=== PATIENT | female | born 1970 | race Caucasian/White ===

== ENCOUNTER 2016-06-12 20:58 | Inpatient (IN) | payer OTHER ==
[~2016-06-12] VITALS: Ht 170.2 cm; Wt 74.2 kg
[~2016-06-12 20:58] MED LIST: ALBU1NEB10 INH; CALC500C73 PO; CELE100C PO; ESCI1TAB9 PO; IPRASOL34 INH; MULT1CHW4 PO; VNTHFA/IN INH
[2016-06-12 21:00] VITALS: Ht 170.2 cm; Wt 74.2 kg
[2016-06-12] MEDS ORDERED: SODIUM CHLORIDE 0.9% 1000ML 2,000 ML IV STA (21:11)
[2016-06-12] MEDS ORDERED: KETOROLAC TROMETHAMINE 30 MG/ML VIAL IV STA (21:11)
[2016-06-12] MEDS ORDERED: ONDANSETRON 8 MG/54 ML D5W IV STA (21:11)
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
[2016-06-12 21:36] LABS: BASO % 0.1 %; BASO ABS # 0.01 K/uL (0-0.2); COMPLETE YES; HEMATOCRIT 39.6 % (37-47); IG% 0.2 %; LYMPH % 4.8 %; MEAN CELL VOLUME 89.8 fL (80-100); MEAN CORPUSCULAR HEMOGLOBIN 31.1 pg (25-34); MEAN CORPUSCULAR HGB CONC 34.6 g/dl (32-36); MEAN PLATELET VOLUME 9.6 fL (7.4-10.4); MONO % 5.6 %; NEUT % 89.3 %; PLATELET COUNT 306 K/uL (130-400); RED BLOOD COUNT 4.41 M/uL (4.2-5.4); WHITE BLOOD COUNT 16.64 K/uL (4.8-10.8)
[2016-06-12 21:53] LABS: BUN/CREATININE RATIO 23.4 (10-20); CALCIUM 9.5 mg/dl (8.5-10.1); CREATININE 0.7 mg/dl (0.60-1.20); POTASSIUM 3.4 mmol/L (3.5-5.1)
[2016-06-12 21:56] LABS: ALB/GLOB RATIO 1.3 (0.9-2)
[2016-06-12] MEDS ORDERED: ASTN NAE (22:06)
[2016-06-12] MEDS ORDERED: PSEU30TA20 PO (22:06)
[2016-06-12] MEDS ORDERED: CETI10TA84 PO (22:06)
[2016-06-12] MEDS ORDERED: FLNIN/ NAE (22:06)
[2016-06-12] MEDS ORDERED: PRED10TA PO (22:06)
[2016-06-12] MEDS ORDERED: ZOLP10TA6 PO (22:06)
[2016-06-12] MEDS ORDERED: BXN500 PO (22:06)
[2016-06-12] MEDS ORDERED: MULT1CHW4 PO (22:07)
--- NOTE | 2016-06-12 22:15 | DIAGNOSTIC IMAGING REPORT ---
PA CHEST RADIOGRAPH AND UPRIGHT AND SUPINE AP RADIOGRAPHS OF THE ABDOMEN CLINICAL HISTORY: Abdominal pain, nausea, vomiting and diarrhea. COMPARISON STUDY: Chest radiograph July 26, 2013 and abdominal series July 12, 2009. FINDINGS: Lung volumes are normal. The lungs are clear. There is no pneumothorax or pleural effusion. Cardiac size is normal. Mediastinal contours are normal. No free air is present. Cholecystectomy clips are noted. The bowel gas pattern is normal. Numerous pelvic calcifications likely reflect phleboliths although make evaluation for ureteral calculi difficult. IMPRESSION: 1. No free air or evidence of bowel obstruction. 2. No acute cardiopulmonary findings. Electronically signed by: Lavon Scott M.D. 06/12/2016 10:14 PM Dictated Date/Time: 06/12/2016 10:11 PM
[2016-06-12] MEDS ORDERED: PROMETHAZINE HCL INJ 12.5 MG in SODIUM CHLORIDE 0.9% 50ML 50 ML IV STA (22:40)
[2016-06-12] MEDS ORDERED: MoRPHine SULFATE 4 MG/ML 1 ML CARP\\VIAL IV PRN (23:30)
[2016-06-13] MEDS ORDERED: DiphenhydrAMINE HCL 50 MG/ML VIAL IV STA (00:11)
[2016-06-13] MEDS ORDERED: HYDROmorphone INJ 2 MG/ML SYR/VIAL IV STA (00:11)
[2016-06-13] MEDS ORDERED: METOCLOPRAMIDE HCL INJ 5 MG/ML 2 ML VIAL IV STA (00:11)
[2016-06-13] MEDS ORDERED: HYDROmorphone INJ 0.5 MG/0.5 ML SYR ONE (00:14)
[2016-06-13] MEDS ORDERED: POTASSIUM CHLR 10 MEQ / WTR 10 MEQ IV STA (00:41)
[2016-06-13] MEDS ORDERED: ALBUT/IPRATROP 3MG/0.5MG NEB 3 ML VIAL INH PRN (00:45)
[2016-06-13] MEDS ORDERED: FLUTICASONE PROPIONATE NA SPR 16 GM BTL NAE PRN (00:45)
[2016-06-13] MEDS ORDERED: MAGNESIUM HYDROXIDE SUSP 30 ML UDC PO PRN (00:45)
[2016-06-13] MEDS ORDERED: AZELASTINE HCL 30 ML INH NAE PRN (00:45)
[2016-06-13] MEDS ORDERED: ZOLPIDEM TARTRATE 5 MG TAB PO PRN (00:45)
[2016-06-13] MEDS ORDERED: ALBUTEROL HFA 8 GM INHALER INH PRN (00:45)
[2016-06-13] MEDS ORDERED: ACETAMINOPHEN 325 MG TAB PO PRN (00:45)
[2016-06-13] MEDS ORDERED: POLYETHYLENE (MIRALAX) 17 GM PACK PO PRN (00:45)
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
[2016-06-13 01:57] VITALS: BP 96/57; PULSE 63; TEMP 36.9; BMI 25.6
[2016-06-13] MEDS: KETOROLAC TROMETHAMINE 30 MG/ML VIAL IV PRN ×2 (03:58→13:36)
[2016-06-13] MEDS: ONDANSETRON INJ 2 MG/ML 2 ML VIAL IV PRN ×2 (03:58→12:35)
[2016-06-13] MEDS: SODIUM CHLORIDE 0.9% 1000ML 1,000 ML IV SCH ×3 (03:59→16:00)
--- NOTE | 2016-06-13 06:58 | DIAGNOSTIC IMAGING REPORT ---
CT OF THE ABDOMEN AND PELVIS WITHOUT CONTRAST CLINICAL HISTORY: Abdominal pain and vomiting. COMPARISON STUDY: CT of the abdomen and pelvis July 11, 2009 and abdominal series June 12, 2016. TECHNIQUE: Axial images of the abdomen and pelvis were obtained without IV contrast. Images were reviewed in the axial, sagittal, and coronal planes. FINDINGS: Lung bases are clear. There is a small hiatal hernia. Evaluation of the abdomen and pelvis is suboptimal on this unenhanced exam. There is no biliary ductal dilatation status post cholecystectomy. The liver, spleen, adrenal glands, kidneys and pancreas are normal. No pneumatosis, free air or portal venous gas is present. Portions of the small bowel are fluid filled and slightly dilated. A definite transition point is not identified. There are a few decompressed small bowel loops. There is no free fluid. No lymphadenopathy is present. The appendix is not visualized. Pelvic calcifications likely reflect phleboliths. Skeletal structures are unremarkable. IMPRESSION: Fluid-filled, slightly dilated small bowel without definite transition point identified. The findings could reflect gastroenteritis or a partial small bowel obstruction. Discussed with Dr. Hopper at time of dictation. Electronically signed by: Lavon Scott M.D. 06/13/2016 6:56 AM Dictated Date/Time: 06/13/2016 6:32 AM
[2016-06-13 07:26] VITALS: BP 89/54; PULSE 80; TEMP 37.2; O2SAT 96
[2016-06-13 07:49] LABS: HEMATOCRIT 33.3 % (37-47); MEAN CELL VOLUME 90.7 fL (80-100); MEAN CORPUSCULAR HEMOGLOBIN 30.8 pg (25-34); MEAN CORPUSCULAR HGB CONC 33.9 g/dl (32-36); MEAN PLATELET VOLUME 9.7 fL (7.4-10.4); PLATELET COUNT 257 K/uL (130-400); RED BLOOD COUNT 3.67 M/uL (4.2-5.4); WHITE BLOOD COUNT 8.82 K/uL (4.8-10.8)
[2016-06-13] MEDS: PROMETHAZINE HCL INJ 12.5 MG in SODIUM CHLORIDE 0.9% 50ML 50 ML IV PRN ×2 (08:15→17:18)
[2016-06-13 08:20] LABS: CALCIUM 8.2 mg/dl (8.5-10.1); CREATININE 0.52 mg/dl (0.60-1.20); MAGNESIUM 2.1 mg/dl (1.8-2.4); POTASSIUM 3.4 mmol/L (3.5-5.1)
[2016-06-13 08:36] VITALS: BP 96/56
[2016-06-13] MEDS: CETIRIZINE HCL 10 MG TAB PO SCH ×2 (09:36→21:00)
[2016-06-13] MEDS ORDERED: POTASSIUM CHLORIDE 20 MEQ TABCR PO ONE (15:15)
[2016-06-13] MEDS ORDERED: PANTOprazole SOD 40 MG TAB PO ONE (15:15)
[2016-06-13 16:00] VITALS: O2SAT 96
[2016-06-13 16:14] VITALS: BP 90/56; PULSE 60; TEMP 37.2; O2SAT 97
--- NOTE | 2016-06-13 19:53 | Progress Note ---
Internal Med Progress Note Date of Service: Jun 13, 2016. Provider Documentation: SUBJECTIVE: Patient is seen and examined at bedside. She complains of persistent nausea, 2- 3 epidoes of small loose BM and intermittent LUQ abd pain. Denies any fever, chills, chest pain, SOB. OBJECTIVE: Vital Signs-as noted below General Appearance: Moderately built and nourished. + mild distress secondary to nausea Head: normocephalic, atraumatic Eyes: normal inspection ENT: hearing grossly normal Neck: supple, No JVD Respiratory/Chest: lungs clear, normal breath sounds, no respiratory distress, no accessory muscle use Cardiovascular: regular rate, rhythm, no edema, no murmur Abdomen/GI: normal bowel sounds, soft, mild tenderness diffusely, no guarding/ rigidity Extremities/Musculoskelatal: normal capillary refill, no pedal edema Neurologic/Psych: no motor/sensory deficits, alert, normal mood/affect Skin: normal color Lab data as noted below. ASSESSMENT & PLAN: Patient is a 46 yr old female with PMH of asthma, seasonal allergic rhinitis presents with worsening abdominal pain, nausea, vomiting and non bloody loose watery diarrhea. Patient was treated by her PCP for an URI on 2016 with Biaxin and prednisone taper. She states URI symptoms resolved but started having GI symptoms. CT abd shows findings of gastroenteritis and possible partial SBO. Viral Gastroenteritis: R/O Small Bowel Obstruction Complains of Nausea, vomiting, abd pain CT Abd: Suggestive of gastroenteritis and possible partial SBO Continue IV fluids, Zofran PRN Stool: Negative for C.diff Stool cultures: pending Monitor for electrolyte imbalance Pain control, Avoid Narcotics Start Clear liquid diet Repeat KUB in AM Consider NG tube if no resolution Hypokalemia Secondary to GI loses Will replace and monitor Asthma/Allergies Stable continue home inhalers Duonebs PRN DVT Px SCDs FULL CODE Vital Signs: Date Time Temp Pulse Resp B/P Pulse Ox O2 Delivery O2 Flow Rate FiO2 06/13/16 16:14 37.2 60 18 90/56 97 Room Air 06/13/16 16:00 96 Room Air 06/13/16 08:36 96/56 06/13/16 08:15 Room Air 06/13/16 07:26 37.2 80 14 89/54 96 Room Air 06/13/16 04:14 Room Air 06/13/16 01:57 36.9 63 18 96/57 Room Air 06/13/16 00:58 62 20 97/54 98 Room Air 06/12/16 22:58 36.7 69 20 93/57 98 Room Air 06/12/16 21:00 36.6 79 18 126/83 98 Room Air Lab Results: Results Past 24 Hours Test 06/12/16 21:25 06/13/16 00:55 06/13/16 06:49 Range/Units White Blood Count 16.64 8.82 4.8-10.8 K/uL Red Blood Count 4.41 3.67 4.2-5.4 M/uL Hemoglobin 13.7 11.3 12.0-16.0 g/dL Hematocrit 39.6 33.3 37-47 % Mean Corpuscular Volume 89.8 90.7 80-100 fL Mean Corpuscular Hemoglobin 31.1 30.8 25-34 pg Mean Corpuscular Hemoglobin Concent 34.6 33.9 32-36 g/dl Platelet Count 306 257 130-400 K/uL Mean Platelet Volume 9.6 9.7 7.4-10.4 fL Neutrophils (%) (Auto) 89.3 % Lymphocytes (%) (Auto) 4.8 % Monocytes (%) (Auto) 5.6 % Eosinophils (%) (Auto) 0.0 % Basophils (%) (Auto) 0.1 % Neutrophils # (Auto) 14.87 1.4-6.5 K/uL Lymphocytes # (Auto) 0.80 1.2-3.4 K/uL Monocytes # (Auto) 0.93 0.11-0.59 K/uL Eosinophils # (Auto) 0.00 0-0.5 K/uL Basophils # (Auto) 0.01 0-0.2 K/uL RDW Standard Deviation 43.0 44.0 36.4-46.3 fL RDW Coefficient of Variation 13.0 13.3 11.5-14.5 % Immature Granulocyte % (Auto) 0.2 % Immature Granulocyte # (Auto) 0.03 0.00-0.02 K/uL Sodium Level 141 143 136-145 mmol/L Potassium Level 3.4 3.4 3.5-5.1 mmol/L Chloride Level 104 110 98-107 mmol/L Carbon Dioxide Level 24 24 21-32 mmol/L Anion Gap 13.0 9.0 3-11 mmol/L Blood Urea Nitrogen 16 15 7-18 mg/dl Creatinine 0.70 0.52 0.60-1.20 mg/dl Est Creatinine Clear Calc Drug Dose 103.4 139.2 ml/min Estimated GFR () 118.7 130.9 Estimated GFR (Non- 102.5 113.0 BUN/Creatinine Ratio 23.4 29.0 10-20 Random Glucose 119 85 70-99 mg/dl Calcium Level 9.5 8.2 8.5-10.1 mg/dl Total Bilirubin 0.6 0.2-1 mg/dl Aspartate Amino Transf (AST/SGOT) 18 15-37 U/L Alanine Aminotransferase (ALT/SGPT) 26 12-78 U/L Alkaline Phosphatase 57 45-117 U/L Total Protein 7.0 6.4-8.2 gm/dl Albumin 4.0 3.4-5.0 gm/dl Globulin 3.0 2.5-4.0 gm/dl Albumin/Globulin Ratio 1.3 0.9-2 Lipase 153 73-393 U/L Influenza Type A Antigen Neg for Influ A NEG Influenza Type B Antigen Neg for Influ B NEG Magnesium Level 2.1 1.8-2.4 mg/dl Microbiology Results 06/12/16 Shiga Toxin Test - Preliminary, Resulted 06/12/16 Stool Culture - Preliminary, Resulted NO SALMONELLA ISOLATED TO DATE,... 06/12/16 C.difficile Toxin B Gene (PCR) - Final, Complete No C. difficile toxin B gene detected
[2016-06-13 23:05] VITALS: BP 100/58; PULSE 67; TEMP 36.6; O2SAT 97
[2016-06-14] MEDS: SODIUM CHLORIDE 0.9% 1000ML 1,000 ML IV SCH ×3 (00:28→20:09)
[2016-06-14 05:39] LABS: HEMATOCRIT 31.6 % (37-47); MEAN CELL VOLUME 91.6 fL (80-100); MEAN CORPUSCULAR HEMOGLOBIN 30.7 pg (25-34); MEAN CORPUSCULAR HGB CONC 33.5 g/dl (32-36); MEAN PLATELET VOLUME 9.5 fL (7.4-10.4); PLATELET COUNT 222 K/uL (130-400); RED BLOOD COUNT 3.45 M/uL (4.2-5.4); WHITE BLOOD COUNT 6.76 K/uL (4.8-10.8)
[2016-06-14 06:05] LABS: BUN/CREATININE RATIO 17.5 (10-20); CALCIUM 8.3 mg/dl (8.5-10.1); CREATININE 0.53 mg/dl (0.60-1.20); MAGNESIUM 2.1 mg/dl (1.8-2.4); POTASSIUM 3.5 mmol/L (3.5-5.1)
[2016-06-14 06:20] LABS: BASO % 0.3 %; BASO ABS # 0.02 K/uL (0-0.2); COMPLETE YES; EOS % 3.1 %; IG% 0.3 %; LYMPH % 52.7 %; LYMPH ABS # 3.56 K/uL (1.2-3.4); MONO % 13.5 %; NEUT % 30.1 %
[2016-06-14 08:03] VITALS: BP 90/56; PULSE 62; TEMP 36.7; O2SAT 97
--- NOTE | 2016-06-14 08:05 | DIAGNOSTIC IMAGING REPORT ---
KUB CLINICAL HISTORY: Abdominal pain. COMPARISON STUDY: 06/12/2016 FINDINGS: There is no pathologic bowel dilatation. There are no transition zones indicate bowel obstruction. There are multiple nonspecific pelvic basin calcifications. There are surgical clips in the right upper quadrant consistent with a prior cholecystectomy. IMPRESSION: 1. No evidence of pathologic bowel dilatation 2. Multiple nonspecific pelvic basin calcifications. Electronically signed by: Thanh Tavera M.D. 06/14/2016 8:03 AM Dictated Date/Time: 06/14/2016 8:03 AM
[2016-06-14] MEDS: PANTOprazole SOD 40 MG TAB PO SCH (09:04)
[2016-06-14] MEDS: CETIRIZINE HCL 10 MG TAB PO SCH ×2 (09:04→21:29)
[2016-06-14] MEDS: ONDANSETRON INJ 2 MG/ML 2 ML VIAL IV PRN (10:16)
--- NOTE | 2016-06-14 11:46 | Progress Note ---
Internal Med Progress Note Date of Service: Jun 14, 2016. Provider Documentation: SUBJECTIVE: Patient is seen and examined at bedside. Reports nausea but no episodes of vomiting. Still not tolerating diet at her baseline. Diarrhea and abd pain is improving but states noticing minimal blood after BM. OBJECTIVE: Vital Signs-as noted below General Appearance: Moderately built and nourished. + mild distress secondary to nausea Head: normocephalic, atraumatic Eyes: normal inspection ENT: hearing grossly normal Neck: supple, No JVD Respiratory/Chest: lungs clear, normal breath sounds, no respiratory distress, no accessory muscle use Cardiovascular: regular rate, rhythm, no edema, no murmur Abdomen/GI: normal bowel sounds, soft, minimal tenderness LUQ, no guarding/ rigidity Extremities/Musculoskelatal: normal capillary refill, no pedal edema Neurologic/Psych: no motor/sensory deficits, alert, normal mood/affect Skin: normal color Lab data as noted below. ASSESSMENT & PLAN: Patient is a 46 yr old female with PMH of asthma, seasonal allergic rhinitis presents with worsening abdominal pain, nausea, vomiting and non bloody loose watery diarrhea. Patient was treated by her PCP for an URI on 2016 with Biaxin and prednisone taper. She states URI symptoms resolved but started having GI symptoms. CT abd shows findings of gastroenteritis and possible partial SBO. Viral Gastroenteritis: R/O Small Bowel Obstruction Complains of Nausea, vomiting, abd pain, diarrhea CT Abd: Suggestive of gastroenteritis and possible partial SBO Leukocytosis resolved Continue IV fluids, PPI, Zofran PRN Stool: Negative for C.diff Stool cultures: pending Monitor for electrolyte imbalance Pain control, Avoid Narcotics Advance diet as tolerated Repeat KUB: No signs of obstruction Check fecal occult Drop in Hb could be dilutional, Monitor H&H Consider GI eval if no resolution Hypokalemia Secondary to GI loses Monitor Asthma/Allergies Stable continue home inhalers Duonebs PRN DVT Px SCDs FULL CODE Vital Signs: Date Time Temp Pulse Resp B/P Pulse Ox O2 Delivery O2 Flow Rate FiO2 06/14/16 08:30 Room Air 06/14/16 08:03 36.7 62 16 90/56 97 Room Air 06/13/16 23:05 36.6 67 16 100/58 97 Room Air 06/13/16 22:47 Room Air 06/13/16 16:14 37.2 60 18 90/56 97 Room Air 06/13/16 16:00 96 Room Air Lab Results: Results Past 24 Hours Test 06/14/16 05:04 Range/Units White Blood Count 6.76 4.8-10.8 K/uL Red Blood Count 3.45 4.2-5.4 M/uL Hemoglobin 10.6 12.0-16.0 g/dL Hematocrit 31.6 37-47 % Mean Corpuscular Volume 91.6 80-100 fL Mean Corpuscular Hemoglobin 30.7 25-34 pg Mean Corpuscular Hemoglobin Concent 33.5 32-36 g/dl Platelet Count 222 130-400 K/uL Mean Platelet Volume 9.5 7.4-10.4 fL Neutrophils (%) (Auto) 30.1 % Lymphocytes (%) (Auto) 52.7 % Monocytes (%) (Auto) 13.5 % Eosinophils (%) (Auto) 3.1 % Basophils (%) (Auto) 0.3 % Neutrophils # (Auto) 2.04 1.4-6.5 K/uL Lymphocytes # (Auto) 3.56 1.2-3.4 K/uL Monocytes # (Auto) 0.91 0.11-0.59 K/uL Eosinophils # (Auto) 0.21 0-0.5 K/uL Basophils # (Auto) 0.02 0-0.2 K/uL RDW Standard Deviation 45.8 36.4-46.3 fL RDW Coefficient of Variation 13.7 11.5-14.5 % Immature Granulocyte % (Auto) 0.3 % Immature Granulocyte # (Auto) 0.02 0.00-0.02 K/uL Red Blood Cell Morphology Unremarkable Sodium Level 144 136-145 mmol/L Potassium Level 3.5 3.5-5.1 mmol/L Chloride Level 112 98-107 mmol/L Carbon Dioxide Level 25 21-32 mmol/L Anion Gap 7.0 3-11 mmol/L Blood Urea Nitrogen 9 7-18 mg/dl Creatinine 0.53 0.60-1.20 mg/dl Est Creatinine Clear Calc Drug Dose 136.6 ml/min Estimated GFR () 130.1 Estimated GFR (Non- 112.3 BUN/Creatinine Ratio 17.5 10-20 Random Glucose 83 70-99 mg/dl Calcium Level 8.3 8.5-10.1 mg/dl Magnesium Level 2.1 1.8-2.4 mg/dl
[2016-06-14 15:30] VITALS: BP 107/72; PULSE 63; TEMP 36.8; O2SAT 97
[2016-06-14 23:04] VITALS: BP 105/67; PULSE 52; TEMP 36.7; O2SAT 98
[2016-06-15] MEDS ORDERED: LOPERAMIDE HCL 2 MG CAP PO PRN (07:30)
[2016-06-15 07:37] LABS: BASO % 0.2 %; BASO ABS # 0.02 K/uL (0-0.2); COMPLETE YES; EOS % 2.6 %; HEMATOCRIT 33.1 % (37-47); IG% 0.2 %; LYMPH % 37.8 %; LYMPH ABS # 3.09 K/uL (1.2-3.4); MEAN CELL VOLUME 91.4 fL (80-100); MEAN CORPUSCULAR HEMOGLOBIN 30.7 pg (25-34); MEAN CORPUSCULAR HGB CONC 33.5 g/dl (32-36); MEAN PLATELET VOLUME 9.8 fL (7.4-10.4); MONO % 9.1 %; NEUT % 50.1 %; PLATELET COUNT 235 K/uL (130-400); RED BLOOD COUNT 3.62 M/uL (4.2-5.4); WHITE BLOOD COUNT 8.17 K/uL (4.8-10.8)
[2016-06-15 08:01] VITALS: BP 114/72; PULSE 55; TEMP 36.8; O2SAT 97
[2016-06-15 08:01] LABS: BUN/CREATININE RATIO 4.7 (10-20); CALCIUM 8.9 mg/dl (8.5-10.1); CREATININE 0.59 mg/dl (0.60-1.20); POTASSIUM 3.1 mmol/L (3.5-5.1)
[2016-06-15] MEDS ORDERED: POTASSIUM CHLORIDE 20 MEQ TABCR PO ONE (09:00)
[2016-06-15] MEDS: CETIRIZINE HCL 10 MG TAB PO SCH (09:25)
[2016-06-15] MEDS: PANTOprazole SOD 40 MG TAB PO SCH (09:25)
[2016-06-15] MEDS: SODIUM CHLORIDE 0.9% 1000ML 1,000 ML IV SCH (09:27)
--- NOTE | 2016-06-15 12:11 | Discharge Instructions ---
Discharge Instructions Admission Reason for Admission: Lower Abd Pain,Sbo Discharge Discharge Diagnosis / Problem: Gastroenteritis Discharge Goals Goal(s): Decrease discomfort Activity Recommendations Activity Limitations: resume your previous activity . Instructions / Follow-Up Instructions / Follow-Up Please follow up with Family Medicine Dr. Jacinto on June 22 at 10:50am. Current Hospital Diet Patient's current hospital diet: Pediatric BRAT Diet Discharge Diet Recommended Diet: Pediatric BRAT Diet Pending Studies Studies pending at discharge: no Work Instructions Return To Work: after follow-up (Follow up scheduled for June 22.) Medical Emergencies . Who to Call and When: Medical Emergencies: If at any time you feel your situation is an emergency, please call 911 immediately. . Non-Emergent Contact Non-Emergency issues call your: Primary Care Provider . . "Provider Documentation" section prepared by Rachel Nevarez. VTE Core Measure Inpt VTE Proph given/why not?: SCD's
[2016-06-15] MEDS ORDERED: ONDA4TAB10 SL (12:14)
[2016-06-15] MEDS ORDERED: BNT10 PO (12:14)
[2016-06-15] MEDS ORDERED: MCRK/10 PO (12:14)
[2016-06-15 12:43] VITALS: BP 114/72; PULSE 55; TEMP 36.8; O2SAT 97
[2016-06-15] MEDS ORDERED: DICYCLOMINE HCL 10 MG CAP PO PRN (13:00)
--- NOTE | 2016-06-15 19:32 | Discharge Summary ---
Discharge Summary Admission Date: Jun 13, 2016 at 00:38 Discharge Date: Jun 15, 2016 Discharge Disposition: Home Principal Diagnosis: Gastroenteritis Procedures: CT a/p Fluid-filled, slightly dilated small bowel without definite transition point identified. The findings could reflect gastroenteritis or a partial small bowel obstruction. Medication Reconciliation New Medications: Ondasetron Odt (Zofran Odt) 4 Mg Tab 4 MG SL Q6H for Nausea, #6 TAB Potassium Chloride (K-Tabs) 10 Meq Tabcr 1 TAB PO DAILY for 7 Days, #7 TABS Dicyclomine HCl (Dicyclomine HCl) 10 Mg Cap 10 MG PO QID PRN for GI Upset for 10 Days, #40 CAP Continued Medications: Albuterol Hfa (Ventolin Hfa) 200 Puffs/37667 Mcg Aers 2 PUFFS INH UD PRN for SOB/Wheezing Albuterol Soln (Ventolin Soln) 0.083 % Neb 1 AMP INH UD PRN for SOB/Wheezing, #1 BOX Azelastine Hcl (Astelin Nasal Valencia) 200 Sprays/30 Ml Valencia 1 SPRAY JACQUELYN BID PRN for Nasal Congestion, #30 Calcium Carbonate (Calcium) 500 Mg Chw 1000 MG PO Q2D Cetirizine (Zyrtec) 10 Mg Tab 10 MG PO BID, TAB Fluticasone Propionate (Fluticasone Propionate) 120 Sprays/6000 Mcg Inha 1-2 SPRAYS JACQUELYN DAILY PRN for Nasal Congestion, #16 Ipratropium-Albuterol (Duoneb) Shadia 1 TREATMENT INH UD PRN for SOB/Wheezing, INHA Multiple Vitamins W/ Minerals (Adult Gummy) 1 Chw Chw 1 TAB PO DAILY Pseudoephedrine (Sudafed) 30 Mg Tab 30 MG PO PRN UD for CONGESTION, TAB Zolpidem Tartrate (Zolpidem Tartrate) 10 Mg Tab 5 MG PO HS PRN for Sleep, #15 Discontinued Medications: Clarithromycin (Clarithromycin) 500 Mg Tab 500 MG PO BID, #28 Prednisone (Prednisone) 10 Mg Tab 10 MG PO TAPER UD, #30 Admission Information HPI (per Admitting provider): This is a 46 year old female with PMH of asthma, seasonal allergic rhinitis presents with worsening abdominal pain, nausea/vomiting/diarrhea - states that on 06/07/16 - she visited her primary care due to an upper respiratory infection as well as nausea/vomiting at that time. She was given Biaxin and prednisone taper - states that her upper respiratory infection and breathing status improved, but her nausea/abdominal pain worsened. She also developed diarrhea during these days. She attributed this to her antibiotic use; but this kept on worsening until she could not tolerate any PO intake. She decided to come to the ER for further evaluation. Was given Zofran, fluids and pain medications, but her nausea persisted. She had an abdominal radiograph as well as CT; suggesting possible partial small bowel obstruction. Symptoms: + abdominal pain, diffuse, +nausea, +vomiting, +diarrhea. Physical Exam (per Admitting): General Appearance: + mild distress (+nausea, abdominal pain) Head: normocephalic, atraumatic Eyes: normal inspection ENT: hearing grossly normal Neck: supple Respiratory/Chest: lungs clear, normal breath sounds, no respiratory distress, no accessory muscle use Cardiovascular: regular rate, rhythm, no edema, no murmur Abdomen/GI: normal bowel sounds, soft, + tenderness, + pertinent finding ( nondistended, diffusely tender abdomen, soft, worse at the left side, normoactive BS) Extremities/Musculoskelatal: normal capillary refill, no pedal edema Neurologic/Psych: no motor/sensory deficits, alert, normal mood/affect Skin: normal color Hospital Course Patient is a 46 yr old female with PMH of asthma, seasonal allergic rhinitis who presented with worsening abdominal pain, nausea, vomiting and non bloody loose watery diarrhea. Patient was treated by her PCP for an URI on Jun 07 2016 with Biaxin and prednisone taper. She states URI symptoms resolved but started having GI symptoms. CT abd showed findings suggestive of gastroenteritis. Patient was managed medically with symptomatic relief. Nausea, vomiting and diarrhea resolved. Stool studies, including C diff and culture, were negative. Patient was given potassium supplementation for hypokalemia 2/2 diarrhea. Patient should have a repeat potassium level checked and can likely stop potassium supplementation at her follow up visit. Patient deemed stable for discharge with Family Medicine follow up. PE on discharge: General- awake; alert; NAD Eyes- EOMI; no scleral icterus Neck- no stridor; trachea midline Lungs- CTA bilaterally; no wheezes/crackles Heart- RRR; no m/r/g Abdomen- soft; NTND; nBS Back- no gross abnormalities Extremities- no c/c/e; no deformity Neuro- no gross focal deficits Skin- no appreciable rash or bruise . Total time spent on discharge = This includes examination of the patient, discharge planning, medication reconciliation, and communication with other providers. Discharge Instructions Discharge Instructions Admission Reason for Admission: Lower Abd Pain,Sbo Discharge Discharge Diagnosis / Problem: Gastroenteritis Discharge Goals Goal(s): Decrease discomfort Activity Recommendations Activity Limitations: resume your previous activity . Instructions / Follow-Up Instructions / Follow-Up Please follow up with Family Medicine Dr. Jacinto on June 22 at 10:50am. Current Hospital Diet Patient's current hospital diet: Pediatric BRAT Diet Discharge Diet Recommended Diet: Pediatric BRAT Diet Pending Studies Studies pending at discharge: no Work Instructions Return To Work: after follow-up (Follow up scheduled for June 22.) Medical Emergencies . Who to Call and When: Medical Emergencies: If at any time you feel your situation is an emergency, please call 911 immediately. . Non-Emergent Contact Non-Emergency issues call your: Primary Care Provider . . "Provider Documentation" section prepared by Rachel Nevarez. VTE Core Measure Inpt VTE Proph given/why not?: SCD's Additional Copies To Rosalio Jacinto M.D.
== END 2016-06-15 13:39 | disposition home or self-care (01) | DRG 392 ==
LOC: ENRESERVDT → ENRESERVTM → C.EDB 21:00 → C.MSW 06-13 00:38
PROVIDERS: ADMIT Family Medicine; ATTEND Internal Medicine
DX: A08.4 Viral intestinal infection, unspecified (principal); E87.6 Hypokalemia; J45.909 Unspecified asthma, uncomplicated; E78.00 Pure hypercholesterolemia, unspecified; K58.9 Irritable bowel syndrome, unspecified; G43.909 Migraine, unspecified, not intractable, without status migrainosus; Z83.3 Family history of diabetes mellitus; Z88.0 Allergy status to penicillin

== ENCOUNTER → 2016-07-27 | Outpatient (CLI) | payer OTHER ==
[~2016-07-27] MED LIST changes: +ASTN NAE; +BNT10 PO; -CELE100C PO; +CETI10TA84 PO; -ESCI1TAB9 PO; +FLNIN/ NAE; +MCRK/10 PO; +ONDA4TAB10 SL; +PSEU30TA20 PO; +ZOLP10TA6 PO
--- NOTE | 2016-07-27 13:35 | MAMMOGRAPHY REPORT ---
BILATERAL DIGITAL SCREENING MAMMOGRAM TOMOSYNTHESIS WITH CAD: 07/27/2016 CLINICAL HISTORY: Routine screening. Patient has no complaints. TECHNIQUE: Breast tomosynthesis in addition to standard 2D mammography was performed. Current study was also evaluated with a Computer Aided Detection (CAD) system. COMPARISON: Comparison is made to exams dated: 07/23/2015 mammogram, 07/15/2014 mammogram, 07/11/2013 m ammogram, 07/05/2012 mammogram, 05/26/2011 mammogram, and 05/14/2010 mammogram - [facility]. BREAST COMPOSITION: The tissue of both breasts is heterogeneously dense, which may obscure small ma sses. FINDINGS: The parenchymal pattern is similar to prior exams. No new suspicious mass, architectural distortion or cluster of suspicious microcalcifications is seen in either breast. IMPRESSION: ACR BI-RADS CATEGORY 2: BENIGN There is no mammographic evidence of malignancy. A 1 year screening mammogram is recommended. The p atient will receive written notification of the results. Approximately 10% of breast cancers are not detected with mammography. A negative mammographic repor t should not delay biopsy if a clinically suggestive mass is present. Shira Cardoza M.D. ay/:07/27/2016 08:19:48 Electrical Manufacturing Engineer: Lois DEVRIES(R)(Mateo), [facility] letter sent: Normal 1/2 BI-RADS Code: ACR BI-RADS Category 2: Benign
== END | disposition home or self-care (01) ==
LOC: C.MAMM 07:34
PROVIDERS: ATTEND Family Medicine
DX: Z12.31 Encounter for screening mammogram for malignant neoplasm of breast (principal)

== ENCOUNTER → 2016-08-11 | Outpatient (CLI) | payer OTHER | END | disposition home or self-care (01) | LOC: C.LAB1850 08:49 | PROVIDERS: ATTEND Family Medicine | DX: E83.52 Hypercalcemia (principal) ==

== ENCOUNTER → 2016-08-11 | Outpatient (CLI) | payer OTHER | END | disposition home or self-care (01) | LOC: C.MAMM 08:18 | PROVIDERS: ATTEND Family Medicine | DX: E83.52 Hypercalcemia (principal); S82.891S Other fracture of right lower leg, sequela; S82.851G Displaced trimalleolar fracture of right lower leg, subsequent encounter for closed fracture with delayed healing; X58.XXXS Exposure to other specified factors, sequela; X58.XXXD Exposure to other specified factors, subsequent encounter; Z87.81 Personal history of (healed) traumatic fracture ==

== ENCOUNTER → 2017-07-31 | Outpatient (CLI) | payer OTHER ==
[~2017-07-31] MED LIST changes: -ONDA4TAB10 SL
--- NOTE | 2017-08-01 07:56 | MAMMOGRAPHY REPORT ---
BILATERAL DIGITAL SCREENING MAMMOGRAM TOMOSYNTHESIS WITH CAD: 07/31/2017 CLINICAL HISTORY: Routine screening. Patient has no complaints. TECHNIQUE: Breast tomosynthesis in addition to standard 2D mammography was performed. Current study was also evaluated with a Computer Aided Detection (CAD) system. COMPARISON: Comparison is made to exams dated: 07/27/2016 mammogram, 07/23/2015 mammogram, 07/15/2014 m ammogram, 07/11/2013 mammogram, 07/05/2012 mammogram, and 05/26/2011 mammogram - [facility] enter. BREAST COMPOSITION: The tissue of both breasts is heterogeneously dense, which may obscure small mas ses. FINDINGS: There are a few faint punctate microcalcifications in the right breast. The glandular bambi elan is similar to prior mammograms although there is decreased subcutaneous fat suggesting interval w eight loss. No suspicious mass, architectural distortion or cluster of suspicious microcalcification s is seen. IMPRESSION: ACR BI-RADS CATEGORY 1: NEGATIVE There is no mammographic evidence of malignancy. A 1 year screening mammogram is recommended. The pa tient will receive written notification of the results. Approximately 10% of breast cancers are not detected with mammography. A negative mammographic report should not delay biopsy if a clinically suggestive mass is present. Shira Cardoza M.D. ay/:07/31/2017 15:57:22 [employer]: Sirena DEVRIES(R)(M), [facility] letter sent: Normal 1/2 BI-RADS Code: ACR BI-RADS Category 1: Negative
== END | disposition home or self-care (01) ==
LOC: C.MAMM 08:29
PROVIDERS: ATTEND Family Medicine
DX: Z12.31 Encounter for screening mammogram for malignant neoplasm of breast (principal)

== ENCOUNTER → 2017-08-01 | Outpatient (CLI) | payer OTHER | END | disposition home or self-care (01) | LOC: C.PATHSPEC 17:09 | PROVIDERS: ATTEND Ophthalmology | DX: D23.11 Other benign neoplasm of skin of right eyelid, including canthus (principal) ==

== ENCOUNTER 2018-11-27 23:25 | Observation (INO) ==
--- OUTSIDE RECORDS SUMMARY | 2018-11-27 23:28 | External Medical Summary | Continuity of Care Document ---
:1970 Author Name Chris Villegas, Provider Address Unavailable Unavailable , Care Team Providers Name Role Phone Unavailable Unavailable Unavailable Problems Active medical history not documented Allergies and Adverse Reactions Allergy history not documented Medications Medications not documented Procedures Procedures not documented Immunizations Immunizations not documented Plan of Treatment Planned Observations Planned Goals not documented Results No Known Results Results not documented
[2018-11-27] MEDS ORDERED: SODIUM CHLORIDE 0.9% 1000ML 1,000 ML IV ONE (23:50)
[2018-11-27] MEDS ORDERED: ONDANSETRON INJ 2 MG/ML 2 ML VIAL IV STA (23:52)
[2018-11-27] MEDS ORDERED: MoRPHine SULFATE 4 MG/ML 1 ML CARP\\VIAL IV STA (23:57)
[2018-11-28 00:36] LABS: Basophils # (auto) 0.02 K/uL (0-0.2); Basophils % (auto) 0.3 %; Eosinophils # (auto) 0.11 K/uL (0-0.5); Eosinophils % (auto) 1.4 %; Hematocrit (blood only) 38.5 % (37-47); Hemoglobin 12.9 g/dL (12.0-16.0); Immature Granulocytes # (auto) 0.01 K/uL (0.00-0.02); Immature Granulocytes % (auto) 0.1 %; Lymphocytes # (auto) 1.21 K/uL (1.2-3.4); Lymphocytes % (auto) 15.4 %; Mean Corpuscular Hgb Conc 33.5 g/dL (32-36); Mean Corpuscular Volume 86.5 fL (80-100); Mean Platelet Volume 9.7 fL (7.4-10.4); Monocytes # (auto) 0.81 K/uL (0.11-0.59); Monocytes % (auto) 10.3 %; Neutrophils # (auto) 5.68 K/uL (1.4-6.5); Neutrophils % (auto) 72.5 %; Platelet Count 290 K/uL (130-400); RDW Standard Deviation 54.4 fL (36.4-46.3); Red Blood Count 4.45 M/uL (4.2-5.4); White Blood Count 7.84 K/uL (4.8-10.8)
[2018-11-28 00:53] LABS: Alanine Aminotransferase 28 U/L (12-78); Albumin Level 3.8 gm/dl (3.4-5.0); Aspartate Aminotransferase 26 U/L (15-37); BUN Creatinine Ratio 21.5 (10-20); Blood Urea Nitrogen 15 mg/dl (7-18); Calcium 9.5 mg/dl (8.5-10.1); Carbon Dioxide 24 mmol/L (21-32); Chloride 107 mmol/L (98-107); Est GFR (African American) 118.2; Glucose 107 mg/dl (70-99); Potassium 3.2 mmol/L (3.5-5.1); Sodium 136 mmol/L (136-145)
[2018-11-28 00:58] LABS: Albumin Globulin Ratio 1.2 (0.9-2); Alkaline Phosphatase 76 U/L (45-117); Bilirubin,Total 0.4 mg/dl (0.2-1); Globulin 3.3 gm/dl (2.5-4.0); Total Protein 7.1 gm/dl (6.4-8.2); Troponin I < 0.015 ng/ml (0-0.045)
[2018-11-28 01:02] LABS: Pregnancy Test, Serum Negative (Negative)
[2018-11-28] MEDS ORDERED: ONDANSETRON INJ 2 MG/ML 2 ML VIAL IV STA (02:22)
[2018-11-28] MEDS ORDERED: FAMOTIDINE 20MG/5ML IV PUSH IV STA (02:27)
[2018-11-28] MEDS ORDERED: SODIUM CHLORIDE 0.9% 1000ML 1,000 ML IV SCH (02:30)
--- NOTE | 2018-11-28 02:37 | Emergency Department Note ---
Entered by Aaron Boykin acting as a scribe for Sudhakar Moon M.D. History of Present Illness General Chief complaint: Abdominal Pain Stated complaint: FLU LIKE SYMPTOMS, NAUSEA, VOMITING, DIARRHEA Source: patient History of Present Illness Provider complaint: Abd pain Onset (ago): day(s) 2 Location: abdomen Maximum Pain Intensity: 4 Current Pain Intensity: 4 Associated symptoms: + nausea/vomiting, + weakness and + other (diarrhea); no fever/chills The patient is a 48 year old female with a history of migraines, IBS, and asthma who presents to the Emergency Room with complaints of abdominal pain that began approximately 2 days ago. The patient did a lot of physical activity 2 days ago and then ate some pizza. Hours later she began to experience some diarrhea (no blood in stool) and intense abdominal cramping. She adds that she had 12 episodes of diarrhea today; she describes the consistency of her stools as "stra ight water with not even a particle". The patient also complains of nausea/vomiting. She also notes that she feels dehydrated and very weak. The patient's ate the same thing she did and is not experiencing any symptoms. The patient has a past surgical history of cholecystectomy, tubal ligation, hysterectomy, and appendectomy. The patient denies chest pain and fevers. The patient adds that she experienced similar symptoms 2 years ago. Home Medications Home Medications Medication Instructions Recorded Confirmed Type ALBUTEROL HFA (VENTOLIN HFA) 2 puff INHALATION UD PRN #0 07/26/13 History ALBUTEROL SOLN (Ventolin Soln) 1 amp INHALATION UD PRN #1 box 07/26/13 History IPRATROPIUM-ALBUTEROL (Duoneb) 1 treatment INHALATION UD PRN #0 07/26/13 History inh CALCIUM CARBONATE (CALCIUM) 1,000 mg PO Q2D #0 02/16/14 History AZELASTINE HCL (Astelin Nasal 1 spray JACQUELYN BID PRN #30 06/12/16 History [place]) Cetirizine (Zyrtec) 10 mg PO BID #0 tab 06/12/16 History Fluticasone Propionate 1 - 2 spry JACQUELYN DAILY PRN #16 06/12/16 History MULTIPLE VITAMINS W/ MINERALS 1 tab PO DAILY #0 06/12/16 History (ADULT GUMMY) Pseudoephedrine (Sudafed) 30 mg PO PRN UD #0 tab 06/12/16 History ZOLPIDEM TARTRATE 5 mg PO HS PRN #15 06/12/16 History Dicyclomine HCl 10 mg PO QID PRN 10 Days #40 cap 06/15/16 Rx Potassium Chloride (K-Tabs) 1 tab PO DAILY 7 Days #7 tabs 06/15/16 Rx Allergies Allergy/AdvReac Type Severity Reaction Status Date / Time Penicillins Allergy Mild Verified 03/25/11 17:26 doxycycline Allergy Unknown Rash Verified 02/16/14 16:21 Iodinated Contrast- Oral and Allergy Unknown . Verified 06/15/16 08:25 IV Dye iodine Allergy Unknown blisters Verified 02/16/14 16:21 latex Allergy Unknown RASH Verified 03/25/11 15:46 Past Med/Surg History Medical History Asthma IBS (irritable bowel syndrome) Migraines Social History Feels Safe at Home: Yes Smoking Status: Never smoker Review of Systems See HPI for pertinent positives & negatives. and A total of 10 systems reviewed and were otherwise negative Physical Exam Vital Signs Vital Signs - 24 hr 11/27/18 23:28 11/28/18 00:16 11/28/18 00:42 Temperature 36.8 C Temperature Source Oral Sepsis Recent Fever Within 48 Hours No Sepsis Action Taken by Nursing No Action Required Pulse Rate 107 H Pulse Rate [Right Finger] 71 Pulse Rhythm [Right Finger] Regular Pulse Strength [Right Finger] Normal Respiratory Rate 20 16 Respiratory Effort / Characteristics Non-Labored Spontaneous Non-Labored Respiratory Depth Normal Normal Respiratory Pattern Regular Blood Pressure 107/72 Blood Pressure [Right Arm] 113/69 Blood Pressure Mean 83 Blood Pressure Mean [Right Arm] 83 Blood Pressure Position Sitting Blood Pressure Position [Right Arm] Lying Pulse Oximetry 97 99 96 Oxygen Delivery Method Room Air Room Air 11/28/18 02:06 Temperature Temperature Source Sepsis Recent Fever Within 48 Hours Sepsis Action Taken by Nursing Pulse Rate Pulse Rate [Right Finger] 65 Pulse Rhythm [Right Finger] Regular Pulse Strength [Right Finger] Normal Respiratory Rate 16 Respiratory Effort / Characteristics Non-Labored Respiratory Depth Normal Respiratory Pattern Regular Blood Pressure Blood Pressure [Right Arm] 105/55 L Blood Pressure Mean Blood Pressure Mean [Right Arm] 71 Blood Pressure Position Blood Pressure Position [Right Arm] Lying Pulse Oximetry 96 Oxygen Delivery Method Room Air GENERAL: Awake, alert, in no distress, fatigued appearance HENT: Normocephalic, atraumatic. Dry lips EYES: Normal conjunctiva. Sclera non-icteric. NECK: Supple. No nuchal rigidity. RESPIRATORY: Clear to auscultation. No wheezes. Normal respiratory effort. CARDIAC: Normal rate. Normal rhythm. Extremities warm and well perfused. GI: Soft, non-distended. Mildly diffuse abdominal tenderness. No rebound or guarding. No masses. RECTAL: Deferred. MUSCULOSKELETAL: Atraumatic. Chest examination reveals no tenderness. There is no CVA tenderness to palpation. LOWER EXTREMITIES: Calves are equal size bilaterally and non-tender. No edema NEURO: Normal sensorium. No sensory or motor deficits noted. No facial droop. SKIN: Warm and dry. No rash or jaundice noted. Course 2351: The patient was evaluated in room C02B. A complete history and physical exam was performed. Administered Medications Discontinued Medications Famotidine (Pepcid 20mg Iv Push) 20 mg IV ONE STA Stop: 11/28/18 02:28 Last Admin: 11/28/18 02:54 Dose: 20 mg Documented by: [id number] Sodium Chloride (Nss 1000ml) 1,000 mls @ 999 mls/hr IV .Q1H1M ONE Stop: 11/28/18 00:50 Last Admin: 11/28/18 00:25 Dose: 999 mls/hr Documented by: [id number] Morphine Sulfate (Morphine Sulfate) 4 mg IV NOW STA Stop: 11/27/18 23:58 Last Admin: 11/28/18 00:25 Dose: 4 mg Documented by: [id number] Ondansetron HCl (Zofran) 4 mg IV NOW STA Stop: 11/27/18 23:53 Last Admin: 11/28/18 00:26 Dose: 4 mg Documented by: [id number] Ondansetron HCl (Zofran) 4 mg IV NOW STA Stop: 11/28/18 02:23 Last Admin: 11/28/18 02:35 Dose: 4 mg Documented by: [id number] Potassium Chloride (Klor-Con M20) 40 meq PO NOW STA Stop: 11/28/18 02:43 Last Admin: 11/28/18 02:54 Dose: 40 meq Documented by: [id number] Medical Decision Making Differential Diagnosis Differential diagnosis: Etiologies such as diverticulitis, PUD, biliary pathology, UTI, pancreatitis, obstruction, mesenteric ischemia, aortic pathology, infections, inflammatory bowel disease, renal colic, as well as others were entertained. Medical Records Attestation: I reviewed the patient's medical records. Home Medications Current Medication List: was personally reviewed by me Laboratory Data Attestation: I reviewed the patient's lab results. Result diagrams: 11/28/18 00:20 11/28/18 00:20 Lab Results 11/28/18 11/28/18 11/28/18 Range/Units 00:20 00:20 00:20 WBC 7.84 (4.8-10.8) K/uL RBC 4.45 (4.2-5.4) M/uL Hgb 12.9 (12.0-16.0) g/dL Hct 38.5 (37-47) % MCV 86.5 (80-100) fL MCH 29.0 (25-34) pg MCHC 33.5 (32-36) g/dL RDW Std Deviation 54.4 H (36.4-46.3) fL RDW Coeff of Akbar 17.0 H (11.5-14.5) % Plt Count 290 (130-400) K/uL MPV 9.7 (7.4-10.4) fL Immature Gran % (Auto) 0.1 % Neut % (Auto) 72.5 % Lymph % (Auto) 15.4 % [place] % (Auto) 10.3 % Eos % (Auto) 1.4 % Baso % (Auto) 0.3 % Immature Gran # (Auto) 0.01 (0.00-0.02) K/uL Neut # (Auto) 5.68 (1.4-6.5) K/uL Lymph # (Auto) 1.21 (1.2-3.4) K/uL [place] # (Auto) 0.81 H (0.11-0.59) K/uL Eos # (Auto) 0.11 (0-0.5) K/uL Baso # (Auto) 0.02 (0-0.2) K/uL Sodium 136 (136-145) mmol/L Potassium 3.2 L (3.5-5.1) mmol/L Chloride 107 (98-107) mmol/L Carbon Dioxide 24 (21-32) mmol/L Anion Gap 5.0 (3-11) BUN 15 (7-18) mg/dl Creatinine 0.68 (0.6-1.2) mg/dl Est Cr Clr Drug Dosing Not Reportable Est GFR ( Amer) 118.2 Est GFR (Non-Af Amer) 102.0 BUN/Creatinine Ratio 21.5 H (10-20) Glucose 107 H (70-99) mg/dl Calcium 9.5 (8.5-10.1) mg/dl Total Bilirubin 0.4 (0.2-1) mg/dl AST 26 (15-37) U/L ALT 28 (12-78) U/L Alkaline Phosphatase 76 (45-117) U/L Troponin I < 0.015 (0-0.045) ng/ml Total Protein 7.1 (6.4-8.2) gm/dl Albumin 3.8 (3.4-5.0) gm/dl Globulin 3.3 (2.5-4.0) gm/dl Albumin/Globulin Ratio 1.2 (0.9-2) Lipase 76 (73-393) U/L HCG, Qual Negative (Negative) Imaging Data Radiologist's Impression: Radiology results as stated below per my review and the radiologist's interpretation: CT ABD and Pelvis without contrast: S/P cholecystectomy. Mild biliary dilation appears increased from previous study measuring up to 10 mm, No distal obstructing lesion is seen on CT. Recommend correlation with liver function tests and consider further imaging if clinically indicated. Fluid-filled colon suggests diarrhea. There are scattered a-r-fluid levels within the small bowel. No bowel wall thickening or surrounding fat. str anding/edema or obstruction. Recommend correlation with gastroenteritis. No free air or free fluid. The appendix is not identified. No hydronephrosis or nephrolithiasis. Radiologist: Kianna He MD Study ready at 0106 and initial results transmitted at 0226 ECG Data Attestation: I personally reviewed and interpreted this ECG as follows: Indication: abdominal pain Rate (beats per minute): 82 Rhythm: normal sinus Findings: + other (normal axis) and + T-wave inversion (anterior lateral); no PVC, no ST depression and no ST elevation Blood Pressure Blood Pressure Findings: Normal blood pressure MDM Narrative Patient is a 48-year-old female past medical history of partial bowel bowel obstruction as well as multiple abdominal surgeries presenting today complaining of 2 days of abdominal symptoms. Severe nausea with vomiting. Decreased p.o. Diffuse abdominal pain with clear liquid diarrhea. Denies any recent trauma, fevers or antibiotics. Is endorsing some subjective chills. Afebrile upon arrival. Limited oral intake. History of IV dye allergy. Noncontrast CT scan was completed for dilation for possible obstruction. Basic laboratory studies are complete without evidence of acute hepatitis or pancreatitis. No evidence of anemia or leukocytosis. Lower suspicion is acute PE, dissection, or ACS however EKG and troponin were completed. Patient does have a nonspecific T wave changes but negative troponin again no active chest pain. Did order stool and C. difficile studies although it seems unlikely C. difficile colitis in my opinion. Prior cholecystectomy no evidence of significant LFT abnormalities or obstruc tive pathology here. CT scan of the abdomen pelvis showed per stat rd interpretation showed mild biliary dilatation without laboratory correlation here and no obstructive lesion noted on CT. Findings consistent with diarrhea but no convincing evidence of obstruction consistent with gastroenteritis. No hydronephrosis and nephrolithiasis is noted. Reevaluate the patient states she has some mild improvement both her nausea or pain but still does not believe should be able to maintain hydration. Barely tolerating ice chips. Given this I discussed the options of staying for observation versus trial at home with antiemetics. Patient states she still feels very weak and wish to stay for obse rvation. Hospitalist contacted. Impression & Plan Gastroenteritis, Dehydration Discharge Plan Visit Data Chief Complaint: Abdominal Pain Stated Complaint: FLU LIKE SYMPTOMS, NAUSEA, VOMITING, DIARRHEA ED Provider: Sudhakar Moon Discharge Problem: Gastroenteritis, Dehydration Forms Stand Alone Forms: Call Back Authorization, [facility] Prescriptions Prescriptions: No Action ALBUTEROL HFA (VENTOLIN HFA) 200 PUFFS/18,000 MCG AEROSOL,SOLN 2 puff Inhalation UD PRN (Reason: SOB/Wheezing) Qty: 0 RF: 0 ALBUTEROL SOLN (Ventolin Soln) 0.083 % NEB 1 amp Inhalation UD PRN (Reason: SOB/Wheezing) Qty: 1 RF: 0 IPRATROPIUM-ALBUTEROL (Duoneb) SOLTAB 1 treatment Inhalation UD PRN (Reason: SOB/Wheezing) Qty: 0 RF: 0 CALCIUM CARBONATE (CALCIUM) 500 MG CHW 1,000 mg PO Q2D Qty: 0 RF: 0 AZELASTINE HCL (Astelin Nasal [place]) 200 SPRAYS/30 ML SPRAY 1 spray JACQUELYN BID PRN (Reason: Nasal Congestion) Qty: 30 RF: 0 Cetirizine (Zyrtec) 10 MG tablet 10 mg PO BID Qty: 0 RF: 0 Fluticasone Propionate 120 SPRAYS/6,000 MCG INHALATION 1 - 2 spry JACQUELYN DAILY PRN (Reason: Nasal Congestion) Qty: 16 RF: 0 Pseudoephedrine (Sudafed) 30 MG tablet 30 mg PO PRN UD Qty: 0 RF: 0 ZOLPIDEM TARTRATE 10 MG tablet 5 mg PO HS PRN (Reason: Sleep) Qty: 15 RF: 0 MULTIPLE VITAMINS W/ MINERALS (ADULT GUMMY) 1 CHW CHW 1 tab PO DAILY Qty: 0 RF: 0 Dicyclomine HCl 10 MG capsule 10 mg PO QID PRN (Reason: GI Upset) 10 Days Qty: 40 RF: 0 Potassium Chloride (K-Tabs) 10 MEQ [id number] 1 tab PO DAILY 7 Days Qty: 7 RF: 0 The scribe's documentation has been prepared under my direction and personally r francwed by me in its entirety. I confirm that the note above accurately reflects all work, treatment, procedures, and medical decision making performed by me.
[2018-11-28] MEDS ORDERED: POTASSIUM CHLORIDE 20 MEQ TABCR PO STA (02:42)
[2018-11-28] MEDS ORDERED: PROMETHAZINE HCL 12.5 MG in SODIUM CHLORIDE 0.9% 50 ML IV PRN (02:50)
[2018-11-28 03:01] LABS: Magnesium 2.2 mg/dl (1.8-2.4)
[2018-11-28] MEDS ORDERED: PROMETHAZINE 12.5 MG/50.5 ML NSS IV ONE (03:41)
--- NOTE | 2018-11-28 03:46 | History & Physical Report ---
Date of Service November 28, 2018 Assessment & Plan (1) Gastroenteritis: Likely foodborne illness Hypokalemia secondary to gastroenteritis mood disorder, stable Bronchial asthma, stable OBS GMF Supportive management for viral gastroenteritis IVF, antiemetics Replace potassium DVT prophylaxis. SCDs Full code History of Present Illness Chief Complaint: Abdominal pain, nausea vomiting diarrhea Primary Care Provider: Rosalio Jacinto MD History obtained from patient and records. Medical history significant for mood disorder, asthma, hyperlipidemia, skin cancer as per records, arthritis. Recent confinement June 2016 for acute gastroenteritis. 3 days history of generalized abdominal pain, nausea, vomiting, nonbloody diarrhea. No fever, no chills. Patient thinks it may be a sandwich she had ordered. No known sick contacts. No recent antibiotic Rx. No chest pain, no S OB. Patient brought to the ER by her . 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 Verified 06/15/16 08:25 IV Dye iodine Allergy Unknown blisters Verified 02/16/14 16:21 latex Allergy Unknown RASH Verified 03/25/11 15:46 Home Medications Home Medications Medication Instructions Recorded Confirmed Type albuterol sulfate 2 puff INHALATION QID PRN 11/28/18 11/28/18 History albuterol sulfate 2.5 mg INHALATION QID PRN 11/28/18 11/28/18 History azelastine 1 spray INTRANASAL BID PRN 11/28/18 11/28/18 History escitalopram oxalate 10 mg PO HS 11/28/18 11/28/18 History fluticasone propionate 1 - 2 spray INTRANASAL BID PRN 11/28/18 11/28/18 History levocetirizine [Xyzal] 5 mg PO DAILY 11/28/18 11/28/18 History Past Med/Surg History Medical History Asthma IBS (irritable bowel syndrome) Migraines Social History Communication Ability: Effective Signals Intelligence Analyst Required: No Beliefs That Will Affect Care: None Current Living Situation: Spouse Other Information That Helps Us Care for You: No Feels Safe at Home: Yes Safety Concerns: Feels Safe At This Time Smoking Status: Never smoker Do You Dip or Chew Tobacco: No Second Hand Exposure: No Tobacco Cessation Education Requested by Patient: No Hx Alcohol Use: Yes Hx Substance Use: No Review of Systems Review of Systems: As per HPI, all 10 systems reviewed, all other ROS negative Physical Exam Physical Exam: GENERAL: Comfortable, slightly anxious, no respiratory distress SKIN: Normal color, warm HEENT: [place] palpebral conjunctivae, no ptosis, dry buccal mucosa NECK : Supple, no tenderness CHEST : CTA, no tenderness HEART : RRR, no obvious murmurs ABDOMEN: Some distention, nonspecific tenderness on light palpation EXTREMITIES : No LE swelling/tenderness, no other conspicuous deformities noted NEUROLOGIC : Coherent, no facial asymmetry, no other gross focality Results & Data Vital Signs (Past 12 Hours) Vital Signs Temp Pulse Pulse Resp BP BP Pulse Ox 11/28/18 02:06 65 16 105/55 L 96 11/28/18 00:42 71 16 113/69 96 11/28/18 00:16 99 11/27/18 23:28 36.8 C 107 H 20 107/72 97 Laboratory Results Laboratory Results WBC 7.84 K/uL (4.8-10.8) 11/28/18 00:20 RBC 4.45 M/uL (4.2-5.4) 11/28/18 00:20 Hgb 12.9 g/dL (12.0-16.0) 11/28/18 00:20 Hct 38.5 % (37-47) 11/28/18 00:20 MCV 86.5 fL (80-100) 11/28/18 00:20 MCH 29.0 pg (25-34) 11/28/18 00:20 MCHC 33.5 g/dL (32-36) 11/28/18 00:20 RDW Std Deviation 54.4 fL (36.4-46.3) H 11/28/18 00:20 RDW Coeff of Akbar 17.0 % (11.5-14.5) H 11/28/18 00:20 Plt Count 290 K/uL (130-400) 11/28/18 00:20 MPV 9.7 fL (7.4-10.4) 11/28/18 00:20 Immature Gran % (Auto) 0.1 % 11/28/18 00:20 Neut % (Auto) 72.5 % 11/28/18 00:20 Lymph % (Auto) 15.4 % 11/28/18 00:20 [place] % (Auto) 10.3 % 11/28/18 00:20 Eos % (Auto) 1.4 % 11/28/18 00:20 Baso % (Auto) 0.3 % 11/28/18 00:20 Immature Gran # (Auto) 0.01 K/uL (0.00-0.02) 11/28/18 00:20 Neut # (Auto) 5.68 K/uL (1.4-6.5) 11/28/18 00:20 Lymph # (Auto) 1.21 K/uL (1.2-3.4) 11/28/18 00:20 [place] # (Auto) 0.81 K/uL (0.11-0.59) H 11/28/18 00:20 Eos # (Auto) 0.11 K/uL (0-0.5) 11/28/18 00:20 Baso # (Auto) 0.02 K/uL (0-0.2) 11/28/18 00:20 Sodium 136 mmol/L (136-145) 11/28/18 00:20 Potassium 3.2 mmol/L (3.5-5.1) L 11/28/18 00:20 Chloride 107 mmol/L (98-107) 11/28/18 00:20 Carbon Dioxide 24 mmol/L (21-32) 11/28/18 00:20 Anion Gap 5.0 (3-11) 11/28/18 00:20 BUN 15 mg/dl (7-18) 11/28/18 00:20 Creatinine 0.68 mg/dl (0.6-1.2) 11/28/18 00:20 Est Cr Clr Drug Dosing Not Reportable 11/28/18 00:20 Est GFR ( Amer) 118.2 11/28/18 00:20 Est GFR (Non-Af Amer) 102.0 11/28/18 00:20 BUN/Creatinine Ratio 21.5 (10-20) H 11/28/18 00:20 Glucose 107 mg/dl (70-99) H 11/28/18 00:20 Calcium 9.5 mg/dl (8.5-10.1) 11/28/18 00:20 Magnesium 2.2 mg/dl (1.8-2.4) 11/28/18 00:20 Total Bilirubin 0.4 mg/dl (0.2-1) 11/28/18 00:20 AST 26 U/L (15-37) 11/28/18 00:20 ALT 28 U/L (12-78) 11/28/18 00:20 Alkaline Phosphatase 76 U/L (45-117) 11/28/18 00:20 Troponin I < 0.015 ng/ml (0-0.045) 11/28/18 00:20 Total Protein 7.1 gm/dl (6.4-8.2) 11/28/18 00:20 Albumin 3.8 gm/dl (3.4-5.0) 11/28/18 00:20 Globulin 3.3 gm/dl (2.5-4.0) 11/28/18 00:20 Albumin/Globulin Ratio 1.2 (0.9-2) 11/28/18 00:20 Lipase 76 U/L (73-393) 11/28/18 00:20 HCG, Qual Negative (Negative) 11/28/18 00:[address] abdomen pelvis initial read: Status post cholecystectomy. Mild biliary dilatation. No distal obstructing lesion on CT. Fluid-filled colon suggest diarrhea. Scattered air-fluid levels within the small bowel. No obstruction. Gastroenteritis. Appendix is not identified EKG as per my interpretation: Rate 80, NSR, diffuse T wave flattening
[2018-11-28] MEDS ORDERED: ACETAMINOPHEN 325 MG TAB PO PRN (04:17)
[2018-11-28] MEDS ORDERED: LACTATED RINGER'S 1,000 ML IV ONE (04:17)
[2018-11-28] MEDS ORDERED: TRAMADOL HCL 50 MG TABLET PO PRN (04:17)
[2018-11-28] MEDS: XYZAL~ORDER AWAITING ACTION SCH ×3 (06:49→23:21)
[2018-11-28] MEDS: AZELASTINE~ORDER AWAITING ACTION SCH ×3 (06:49→23:21)
--- NOTE | 2018-11-28 07:20 | CT Scan Report ---
CT SCAN OF THE ABDOMEN AND PELVIS WITHOUT IV CONTRAST CLINICAL HISTORY: Generalized abdominal pain. Nausea and vomiting. COMPARISON STUDY: Abdominal CT dated 06/12/2016. TECHNIQUE: CT scan of the abdomen and pelvis is performed from the lung bases to the proximal femora. Images are reviewed in the axial, sagittal, and coronal planes. IV contrast was not administered for this examination as per the referring clinician. Note that the examination was performed in signific antly suboptimal fashion without oral and IV contrast. A dose lowering technique was utilized adherin g to the principles of ALARA. CT DOSE: 318.11 mGy.cm FINDINGS: Lung bases: The heart is normal in size and without pericardial effusion. The lung bases are clear. T here is a tiny hiatal hernia. Liver: The unenhanced liver is normal in size, contour, and attenuation. There is mild central intrah epatic biliary ductal dilatation. Gallbladder: Surgically absent noting clips in the gallbladder fossa. Spleen: Normal in size and attenuation. Pancreas: The unenhanced pancreas is grossly unremarkable. Adrenal glands: Unremarkable. Kidneys: The unenhanced kidneys are normal in size and without hydronephrosis. There is a 3 mm nonobs tructing right renal calculus. No left renal calculi are identified. There is no evidence of contour deforming renal mass lesion. Abdominal vasculature: The abdominal aorta is normal in course and caliber. Bowel: Liquid stool is noted throughout the colon. There is no associated colonic wall thickening or pericolonic inflammation. No bowel obstruction is seen. The appendix is not identified and reported surgically absent. Peritoneum: There is no intraperitoneal free air or abdominal ascites. There is a small fat-containin g umbilical hernia. Lymphadenopathy: None. Pelvic viscera: The bladder is decompressed and grossly unremarkable. The uterus is surgically absent . No adnexal lesion is seen. Numerous phleboliths are observed in the pelvis. Skeletal structures: No lytic or blastic lesions are seen. IMPRESSION: 1. Suboptimal examination without oral and IV contrast. 2. Liquid stool seen throughout the colon. There is no associated colonic wall thickening or pericolo danyell infiltration. Correlate clinically for evidence of a diarrheal illness. 3. There is a nonobstructing right renal calculus. 4. Additional findings as above. Electronically signed by: Aaron Heller M.D. 11/28/2018 7:18 AM
[2018-11-28 09:03] LABS: Appearance Urine Clear (Clear); Bilirubin Urine Negative (Negative); Blood Urine Negative (Negative); Color Urine Dark Yellow; Glucose Urine UA Negative (Negative); Leukocyte Esterase Urine Negative (Negative); Nitrite Urine Negative (Negative); Protein Urine Negative (Negative); Specific Gravity Urine 1.029 (1.000-1.030); Urobilinogen Urine Negative (Negative); pH Urine 5.5 (4.5-7.5)
[2018-11-28 09:13] LABS: Ketones Urine 3+ (Negative)
[2018-11-28] MEDS: METOCLOPRAMIDE HCL INJ 5 MG/ML 2 ML VIAL IV PRN (15:56)
[2018-11-28] MEDS: POTASSIUM CHLORIDE / WTR 10 MEQ/100 ML PLCT IV SCH ×4 (17:15→21:55)
[2018-11-28] MEDS: ESCITALOPRAM OXALATE 10 MG TAB PO SCH (20:40)
[2018-11-29 06:40] LABS: BUN Creatinine Ratio 13.6 (10-20); Calcium 8.5 mg/dl (8.5-10.1); Creatinine Clr Calc Pharmacy 114.3 ml/min; Est GFR (African American) 121.9; Est GFR (Non-African American) 105.1; Potassium 3.8 mmol/L (3.5-5.1)
[2018-11-29] MEDS: XYZAL~ORDER AWAITING ACTION SCH ×3 (06:47→23:18)
[2018-11-29] MEDS: AZELASTINE~ORDER AWAITING ACTION SCH ×3 (06:47→23:18)
[2018-11-29 07:12] VITALS: TEMP 98.1
[2018-11-29] MEDS: METOCLOPRAMIDE HCL INJ 5 MG/ML 2 ML VIAL IV PRN (07:25)
[2018-11-29 08:35] LABS: Hematocrit (blood only) 35.7 % (37-47); Hemoglobin 11.4 g/dL (12.0-16.0); Mean Corpuscular Hgb Conc 31.9 g/dL (32-36); Mean Corpuscular Volume 87.7 fL (80-100); Mean Platelet Volume 9.8 fL (7.4-10.4); Platelet Count 266 K/uL (130-400); RDW Coefficient of Variation 17.3 % (11.5-14.5); RDW Standard Deviation 55.8 fL (36.4-46.3); Red Blood Count 4.07 M/uL (4.2-5.4); White Blood Count 6.95 K/uL (4.8-10.8)
[2018-11-29] MEDS: KETOROLAC TROMETHAMINE 15 MG/ML VIAL IV PRN ×2 (10:15→15:08)
--- NOTE | 2018-11-29 10:34 | Hospitalist Progress Note ---
Date of Service November 29, 2018 Assessment & Plan (1) Gastroenteritis: Likely foodborne illness Hypokalemia secondary to gastroenteritis mood disorder, stable Bronchial asthma, stable GMF Supportive management for viral gastroenteritis IVF, antiemetics Replace potassium DVT prophylaxis. SCDs Full code Labs reviewed DC in am, still having diarrhea ROS-No Headache, No Visual Changes, No Nausea, No Vomiting, No Fever, No Chills, No Neck Pain or Stiffness, No Chest Pain, No Palpitations, No SOB, No [place], No Cough, No Sputum, No Wheezing, Mild Abdominal Pain, +Diarrhea, No Hematemesis, No Hemoptysis, No Unexpected Weight Loss, No Flank pain, No Melena, No [place] tochezia, No Frequency, No Urgency, No Burning, No Hematuria, No Rashes, No Diaphoresis. Appetite is Normal Physical Exam Gen-AAO x 3, NAD, Afebrile Head-NCAT, EOMI, PERRLA, Anicteric Sclera, No Posterior Pharyngeal Erythema Neck-Supple, No JVD, No Thyromegaly, No Masses, No LAD, No Bruits Lungs-Clear to Auscultation Bilaterally, No Rales, No Rhonchi, No Wheezing, No Crepitus Chest-No S4, +S1, +S2, No S3, No Murmurs, No Rubs, No Gallops, No Ectopy Abdomen-Soft, Bowel Sounds Present, Sore, Non Distended, No Hepatomegaly, No Splenomegaly, No Palpable Masses, No Rebound, No Rigidity, No Guarding Musculoskeletal-Full Range of Motion Bilaterally, No CVAT Extremities-No Cyanosis, No Clubbing, No Edema Nuero-Cranial Nerves II-XII grossly intact, Motor WNL, DTRs WNL, Strength WNL, Non Focal Psych-Normal Mood Results & Data Vital Signs (Past 12 Hours) Vital Signs Temp Pulse Resp BP Pulse Ox 11/29/18 07:12 36.7 C 60 16 100/64 97
[2018-11-29] MEDS: BISMUTH SUBSALICYLATE SUSP PO PRN ×3 (12:44→20:51)
[2018-11-29] MEDS ORDERED: DICYCLOMINE HCL 10 MG CAP PO ONE (20:15)
[2018-11-29] MEDS: ESCITALOPRAM OXALATE 10 MG TAB PO SCH (21:17)
[2018-11-30 00:01] VITALS: PULSE 72
[2018-11-30 07:20] VITALS: BP 109/69; O2SAT 99
[2018-11-30] MEDS: AZELASTINE~ORDER AWAITING ACTION SCH (08:05)
[2018-11-30] MEDS: XYZAL~ORDER AWAITING ACTION SCH (08:05)
--- NOTE | 2018-11-30 09:35 | Hospitalist Progress Note ---
Date of Service November 30, 2018 Assessment & Plan (1) Gastroenteritis: Likely foodborne illness Hypokalemia secondary to gastroenteritis mood disorder, stable Bronchial asthma, stable Supportive management for viral gastroenteritis IVF, antiemetics Replace potassium DVT prophylaxis. SCDs Full code Labs reviewed one dose of Levaquin DC today ROS-No Headache, No Visual Changes, No Nausea, No Vomiting, No Fever, No Chills, No Neck Pain or Stiffness, No Chest Pain, No Palpitations, No SOB, No ASHFORD, No Cough, No Sputum, No Wheezing, Mild Abdominal Pain, Minimal loose stool, No Hematemesis, No Hemoptysis, No Unexpected Weight Loss, No Flank pain, No Melena, No Hematochezia, No Frequency, + Urgency, + Burning, No Hematuria, No Rashes, No Diaphoresis. Appetite is Normal Physical Exam Gen-AAO x 3, NAD, Afebrile Head-NCAT, EOMI, PERRLA, Anicteric Sclera, No Posterior Pharyngeal Erythema Neck-Supple, No JVD, No Thyromegaly, No Masses, No LAD, No Bruits Lungs-Clear to Auscultation Bilaterally, No Rales, No Rhonchi, No Wheezing, No Crepitus Chest-No S4, +S1, +S2, No S3, No Murmurs, No Rubs, No Gallops, No Ectopy Abdomen-Soft, Bowel Sounds Present, Sore, Non Distended, No Hepatomegaly, No Splenomegaly, No Palpable Masses, No Rebound, No Rigidity, No Guarding Musculoskeletal-Full Range of Motion Bilaterally, No CVAT Extremities-No Cyanosis, No Clubbing, No Edema Nuero-Cranial Nerves II-XII grossly intact, Motor WNL, DTRs WNL, Strength WNL, Non Focal Psych-Normal Mood Results & Data Vital Signs (Past 12 Hours) Vital Signs Temp Pulse Resp BP Pulse Ox 11/30/18 07:19 36.7 C 72 16 109/69 99 11/30/18 00:00 36.7 C 72 20 95/60 L 98
[2018-11-30] MEDS ORDERED: CHOLESTYRAMINE LIGHT 4 GM PKT PO SCH (10:00)
[2018-11-30] MEDS: KETOROLAC TROMETHAMINE 15 MG/ML VIAL IV PRN (10:07)
[2018-11-30] MEDS: DICYCLOMINE HCL 10 MG CAP PO SCH ×3 (10:10→13:05)
--- NOTE | 2018-11-30 11:58 | Discharge Summary ---
Date of Service November 30, 2018 Admission HPI Per Admitting Provider History obtained from patient and records. Medical history significant for mood disorder, asthma, hyperlipidemia, skin cancer as per records, arthritis. Recent confinement June 2016 for acute gastroenteritis. 3 days history of generalized abdominal pain, nausea, vomiting, nonbloody diarrhea. No fever, no chills. Patient thinks it may be a sandwich she had ordered. No known sick contacts. No recent antibiotic Rx. No chest pain, no S OB. Patient brought to the ER by her . 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 Exam Per Admitting Provider GENERAL: Comfortable, slightly anxious, no respiratory distress SKIN: Normal color, warm HEENT: [place] palpebral conjunctivae, no ptosis, dry buccal mucosa NECK : Supple, no tenderness CHEST : CTA, no tenderness HEART : RRR, no obvious murmurs ABDOMEN: Some distention, nonspecific tenderness on light palpation EXTREMITIES : No LE swelling/tenderness, no other conspicuous deformities noted NEUROLOGIC : Coherent, no facial asymmetry, no other gross focality Principal Diagnosis Gastroenteritis N/V/Diarrhea Discharge Exam ROS-No Headache, No Visual Changes, No Nausea, No Vomiting, No Fever, No Chills, No Neck Pain or Stiffness, No Chest Pain, No Palpitations, No SOB, No ASHFORD, No Cough, No Sputum, No Wheezing, Mild Abdominal Pain, Minimal loose stool, No Hematemesis, No Hemoptysis, No Unexpected Weight Loss, No Flank pain, No Melena, No Hematochezia, No Frequency, + Urgency, + Burning, No Hematuria, No Rashes, No Diaphoresis. Appetite is Normal Physical Exam Gen-AAO x 3, NAD, Afebrile Head-NCAT, EOMI, PERRLA, Anicteric Sclera, No Posterior Pharyngeal Erythema Neck-Supple, No JVD, No Thyromegaly, No Masses, No LAD, No Bruits Lungs-Clear to Auscultation Bilaterally, No Rales, No Rhonchi, No Wheezing, No Crepitus Chest-No S4, +S1, +S2, No S3, No Murmurs, No Rubs, No Gallops, No Ectopy Abdomen-Soft, Bowel Sounds Present, Sore, Non Distended, No Hepatomegaly, No Splenomegaly, No Palpable Masses, No Rebound, No Rigidity, No Guarding Musculoskeletal-Full Range of Motion Bilaterally, No CVAT Extremities-No Cyanosis, No Clubbing, No Edema Nuero-Cranial Nerves II-XII grossly intact, Motor WNL, DTRs WNL, Strength WNL, Non Focal Psych-Normal Mood Discharge Data Allergies Allergy/AdvReac Type Severity Reaction Status Date / Time Penicillins Allergy Mild Verified 03/25/11 17:26 doxycycline Allergy Unknown Rash Verified 02/16/14 16:21 Iodinated Contrast- Oral and Allergy Unknown . Verified 06/15/16 08:25 IV Dye iodine Allergy Unknown blisters Verified 02/16/14 16:21 latex Allergy Unknown RASH Verified 03/25/11 15:46 Consultations 11/28/18 02:32 ED Decision to Admit Stat Ordered Studies 11/27/18 23:57 CT abd pelvis wo con Urgent Current Diagnoses Noninfective gastroenteritis and colitis, unspecified (11/28/18) Allergies Penicillins Allergy (Mild, Verified 03/25/11 17:26) doxycycline Allergy (Unknown, Verified 02/16/14 16:21) Rash Iodinated Contrast- Oral and IV Dye Allergy (Unknown, Verified 06/15/16 08:25) . iodine Allergy (Unknown, Verified 02/16/14 16:21) blisters latex Allergy (Unknown, Verified 03/25/11 15:46) RASH Height/Weight/Isolation Height 5 ft 7 in Weight 74.3 kg Chemistry 11/29/18 05:54 Sodium 139 Potassium 3.8 D Chloride 114 H Carbon Dioxide 20 L Anion Gap 5.0 BUN 8 D Creatinine 0.62 Glucose 95 Microbiology 11/28/18 08:35 Stool Shiga Toxin Test - Preliminary 11/28/18 08:35 Stool Stool Culture - Preliminary No Salmonella isolated to date, No Shigella isolated to date, No Campylobacter jejuni isolated to date. Hospital Course (1) Gastroenteritis: Likely foodborne illness Hypokalemia secondary to gastroenteritis mood disorder, stable Bronchial asthma, stable Supportive management for viral gastroenteritis IVF, antiemetics Replace potassium DVT prophylaxis. SCDs Full code Labs reviewed one dose of Levaquin DC today ROS-No Headache, No Visual Changes, No Nausea, No Vomiting, No Fever, No Chills, No Neck Pain or Stiffness, No Chest Pain, No Palpitations, No SOB, No [place], No Cough, No Sputum, No Wheezing, Mild Abdominal Pain, Minimal loose stool, No Hematemesis, No Hemoptysis, No Unexpected Weight Loss, No Flank pain, No Melena, No Hematochezia, No Frequency, + Urgency, + Burning, No Hematuria, No Rashes, No Diaphoresis. Appetite is Normal Physical Exam Gen-AAO x 3, NAD, Afebrile Head-NCAT, EOMI, PERRLA, Anicteric Sclera, No Posterior Pharyngeal Erythema Neck-Supple, No JVD, No Thyromegaly, No Masses, No LAD, No Bruits Lungs-Clear to Auscultation Bilaterally, No Rales, No Rhonchi, No Wheezing, No Crepitus Chest-No S4, +S1, +S2, No S3, No Murmurs, No Rubs, No Gallops, No Ectopy Abdomen-Soft, Bowel Sounds Present, Sore, Non Distended, No Hepatomegaly, No Splenomegaly, No Palpable Masses, No Rebound, No Rigidity, No Guarding Musculoskeletal-Full Range of Motion Bilaterally, No CVAT Extremities-No Cyanosis, No Clubbing, No Edema Nuero-Cranial Nerves II-XII grossly intact, Motor WNL, DTRs WNL, Strength WNL, Non Focal Psych-Normal Mood Total Time Total Time Spent Total Time Spent (In Minutes): 40 mins Total Time Includes: Examination of the Patient, Discharge Planning, Medication Reconciliation and Communication With Other Providers Discharge Plan Discharge Items Patient Disposition: Home - Self-Care Reason For Visit: ABDOMINAL PAIN Discharge Diagnosis: Abd pain Gastroenteritis Nausea with Vomiting and Diarrhea Condition: Good Discharge Goals: Decrease discomfort and Improve disease control Activity: Resume your previous activity Lifting: Gradually increase as tolerated Bathing: No limitations Sexual Activity: When tolerated Exercise/Sports: Gradually increase as tolerated Driving/Machine Use: No limitations Weightbearing: Left weightbearing and Right weightbearing Non-emergency contact: Primary Care Provider Call non-emergency contact if: you have any medication questions and your symptoms worsen Follow-up/Referrals: Rosalio Jacinto MD [Primary Care Provider] - 12/07/18 1:55 pm Diet: Regular and Heart Healthy Addtl Provider Instructions: Routine follow up Prescriptions: New dicyclomine 10 mg Capsule 10 mg PO TIDM Qty: 12 RF: 0 Cholestyramine Light 4 gram Powder In Packet 4 g PO BID@1000,2200 Qty: 16 RF: 0 Continued escitalopram oxalate 10 mg tablet 10 mg PO HS RF: 0 azelastine 137 mcg (0.1 %) aerosol,spray 1 spray intranasal BID PRN (Reason: Congestion) RF: 0 fluticasone propionate 50 mcg/actuation spray,suspension 1 - 2 spray intranasal BID PRN (Reason: Congestion) RF: 0 albuterol sulfate 2.5 mg /3 mL (0.083 %) Solution For Nebulization 2.5 mg INHALATION QID PRN (Reason: Shortness Of Breath Or Wheezing) RF: 0 albuterol sulfate 90 mcg/actuation Hfa Aerosol Inhaler 2 puff INHALATION QID PRN (Reason: Shortness Of Breath Or Wheezing) RF: 0 levocetirizine [Xyzal] 5 mg Tablet 5 mg PO DAILY RF: 0 Stand-Alone Forms: Call Back Authorization, [facility] Discharge Orders: Discharge Order (Routine); Ordered 11/30/18 Ordered By: Isra Aiken Admission Data Admit Date/Time: 11/28/18 03:42 Attending Provider: Isra Aiken Admit Provider: Lex Kuhn Primary Care Provider: Rosalio Jacinto Other Providers: Lex Kuhn Service: Medical
[2018-11-30] MEDS ORDERED: levoFLOXacin 750 MG TAB PO ONE (12:15)
== END 2018-11-30 13:35 | disposition home or self-care (01) ==
LOC: ED 23:25 → 4E 23:25